=== PATIENT | male | born 1995 | race Hispanic/Latino ===

== ENCOUNTER 2021-10-23 07:03 | Emergency (ER) | payer OTHER ==
[~2021-10-23] VITALS: Ht 172.7 cm; Wt 77.1 kg
[2021-10-23] MEDS ORDERED: 0.9%NACL 1000ML 1,000 ML IV ONE (07:30)
[2021-10-23] MEDS ORDERED: ACETAMINOPHEN 500 MG TABLET PO ONE (07:30)
[2021-10-23] MEDS ORDERED: DEXAMETHASONE SOD PHOSPHATE 4 MG/ML 1ML VIAL IV ONE (07:30)
[2021-10-23 08:41] VITALS: BP 119/79
[2021-10-23] MEDS ORDERED: ACET-66 PO (08:43)
[2021-10-23] MEDS ORDERED: AMOX1TAB16 PO (08:43)
[2021-10-23] MEDS ORDERED: LORA10TA7 PO (08:43)
[2021-10-23] MEDS ORDERED: FLUT16H NASAL (08:43)
== END 2021-10-23 09:00 | disposition home or self-care (01) ==
LOC: EDH 07:03
DX: J06.9 Acute upper respiratory infection, unspecified (principal); J32.2 Chronic ethmoidal sinusitis; Z20.822 Contact with and (suspected) exposure to COVID-19; Z79.52 Long term (current) use of systemic steroids
CPT/HCPCS: 99284; 96374; 87635; 96361; 87804 ×2; 93005; J1100; C9803; J7030